=== PATIENT | female | born 1975 | race Caucasian/White ===

== ENCOUNTER → 2021-10-11 14:47 | Outpatient (CLI) | payer MEDICAID, SELFPAY ==
--- NOTE | 2021-10-11 14:47 | US_ITS ---
FINAL REPORT CLINICAL HISTORY: pelvic pain FINDINGS: Transvaginal sonographic images of the pelvis were obtained. The uterus measures 6.3 x 5.1 x 4.6 cm. The endometrium measures 6 mm, which is within normal limits. No uterine mass is identified. The right ovary measures 2.3 cm cm in length and left ovary measures 2.2 cm cm in length. Normal blood flow seen to the ovaries. There is no evidence of free fluid. IMPRESSION: No acute abnormality identified. Reviewed, Interpreted and Dictated by Nish Mancia III, MD Transcribed by Joaquin Sy Authenticated and [facility]
== END ==
PROVIDERS: Visit Provider Obstetrics & Gynecology
DX: R10.2 Pelvic and perineal pain (principal)
CPT/HCPCS: 76830

== ENCOUNTER 2021-11-06 05:29 | Emergency (ER) | payer MEDICAID, SELFPAY ==
[2021-11-06 05:30] VITALS: BP 148/88; PULSE 80; RESP 16; TEMP 36.6; O2SAT 99; BMI 31.9
[2021-11-06 05:40] VITALS: BMI 31.9
--- NOTE | 2021-11-06 05:41 | CT_ITS ---
PROCEDURE INFORMATION: Exam: CT Abdomen And Pelvis With Contrast Exam date and time: 11/06/2021 6:29 AM Age: 46 years old Clinical indication: Abdominal pain; Prior surgery; Surgery date: 6+ months; Surgery type: Tubal; Patient HX: Rlq pain w n/v/d x hours; Additional info: Abd pain TECHNIQUE: Imaging protocol: Computed tomography of the abdomen and pelvis with contrast. Radiation optimization: All CT scans at this facility use at least one of these dose optimization techniques: automated exposure control; mA and/or kV adjustment per patient size (includes targeted exams where dose is matched to clinical indication); or iterative reconstruction. Contrast material: ISOVUE; Contrast volume: 75 ml; Contrast route: IV; COMPARISON: US TRANSVAGINAL 10/11/2021 3:28 PM FINDINGS: Lungs: Minimal dependent changes are present in the lung bases. Liver: Normal. No mass. Gallbladder and bile ducts: Normal. No calcified stones. No ductal dilation. Pancreas: Normal. No ductal dilation. Spleen: Normal. No splenomegaly. Adrenal glands: Normal. No mass. Kidneys and ureters: [id number] right perinephric stranding and hydronephrosis secondary to a 4 x 3 mm calculus located at the right ureterovesical junction. Stomach and bowel: Unremarkable. No obstruction. No mucosal thickening. Appendix: The appendix is seen and is normal in appearance. Intraperitoneal space: Unremarkable. No free air. No significant fluid collection. Vasculature: Unremarkable. No abdominal aortic aneurysm. Lymph nodes: Unremarkable. No enlarged lymph nodes. Urinary bladder: Unremarkable as visualized. Reproductive: Tubal ligation clips are present. Bones/joints: Mild degenerative changes at the lumbosacral junction. Soft tissues: Unremarkable. IMPRESSION: 1. [id number] right perinephric stranding and hydronephrosis secondary to a 4 x 3 mm calculus located at the right ureterovesical junction. 2. Remainder of findings as described.
[2021-11-06 06:10] LABS: Basophils # 0.2 K/mm3 (0-0.2); Basophils % 3.2 % (0.1-2.0); Eosinophils # 0.3 K/mm3 (0.0-0.4); Eosinophils % 4.1 % (0.1-12.0); Hematocrit 41.2 % (37.0-47.0); Hemoglobin 13.2 g/dL (12.2-16.2); Lymphocytes # 1.4 K/mm3 (0.7-4.5); Lymphocytes % 18.8 % (10-50); Mean Corpuscular Hemoglobin 29.8 pg (27.0-31.2); Mean Corpuscular Volume 93.2 fl (81-99); Mean Platelet Volume 7.8 fl (7.4-10.4); Monocytes # 0.5 K/mm3 (0.1-1.0); Monocytes % 6.5 % (1.7-9.3); Neutrophils # 5.1 K/mm3 (1.8-7.8); Neutrophils % 67.4 % (37.0-80.0); Platelet Count 337 K/mm3 (142-424); Red Blood Count 4.42 M/mm3 (4.20-5.40); Red Cell Distribution Width 14.2 % (11.5-17.5); White Blood Count 7.6 K/mm3 (4.8-10.8)
[2021-11-06 06:18] LABS: HCG Qualitative, Serum Negative (Negative)
[2021-11-06 06:19] LABS: Alanine Aminotransferase 54 U/L (12-78); Albumin Level 4.2 g/dl (3.5-5.0); Albumin/Globulin Ratio 1.3 (1.1-1.8); Alkaline Phosphatase 126 U/L (38-126); Amylase 74 U/L (30-110); Anion Gap 11.2 mEq/L (5-15); Aspartate Amino Transferase 36 U/L (14-36); Blood Urea Nitrogen 11 mg/dl (7-17); Carbon Dioxide 25 mmol/L (22.0-30.0); Chloride 107 mmol/L (98-107); Creatinine Clearance Estimated 135 mL/min (50-200); Estimated Glomerular Filt Rate 78 ml/min (>60); GFR (African American) 94 ML/MIN (>60); Globulin 3.2 g/dL (1.3-3.2); Glucose 102 mg/dl (74-100); Lactic Acid 1.2 mmol/L (0.7-2.1); Lipase 114 U/L (23-300); Potassium 4.2 mmoL/L (3.5-5.1); Sodium 139 mmol/L (136-145); Total Protein,Serum 7.4 g/dl (6.3-8.2)
[2021-11-06 06:25] LABS: Bilirubin,Total < 0.1 mg/dl (0.2-1.3)
[2021-11-06 06:33] LABS: Erythrocyte Sedimentation Rate 26 mm/hr (0-20)
[2021-11-06 06:37] LABS: Procalcitonin 0.049 ng/mL (0.0-2.0)
--- NOTE | 2021-11-06 06:40 | HMH.EDNVD ---
ED Disposition Clinical Impression: Renal colic on right side Disposition: Home, Self-Care Condition on Discharge: Good Instructions: DI for Kidney Stones Additional Instructions: fluids and call pcp for follow up Prescriptions: Tamsulosin HCl [Flomax 0.4mg capsule] 0.4 mg PO HS #10 cap Transmission Status: Pending to [id number] Ketorolac Tromethamine [Toradol 10mg tablet] 10 mg PO Q6HP PRN #10 tab MDD 40mg/day PRN Reason: Moderate To Severe Pain Transmission Status: Pending to [id number] Referrals: Provider,Referral, [Primary Care Provider] - - Critical Care Critical Care Time: No Attestation: On 11/06/21, the high probability of a clinically significant, sudden or life threatening deterioration of the following system(s) required my full and direct attention, intervention and personal management. The time I documented below is in addition to time spent performing reported procedures but includes the following listed in this critical care notation. Medical Decision Making - Medical Records Medical records reviewed: Yes: I reviewed the patient's medical records. - Humberto Inquiry Pt receiving controlled substance: No Vital Signs: 11/06/21 05:30 11/06/21 07:00 Temperature 97.9 F Temperature Source Oral Pulse Rate 78 Pulse Rate [Right] 80 Respiratory Rate 16 16 Blood Pressure 149/88 H Blood Pressure [Right Arm] 148/88 H Blood Pressure Mean 108 Blood Pressure Mean [Right Arm] 108 02 Sat by Pulse Oximetry 99 99 - Lab Data Lab results reviewed: Yes: I reviewed the patient's lab results. Lab Results 11/06/21 05:58: WBC 7.6, RBC 4.42, Hgb 13.2, Hct 41.2, MCV 93.2, MCH 29.8, MCHC 32.0, RDW 14.2, Plt Count 337, MPV 7.8, Neut % (Auto) 67.4, Lymph % (Auto) 18.8, Scurry % (Auto) 6.5, Eos % (Auto) 4.1, Baso % (Auto) 3.2 H, Neut # (Auto) 5.1, Lymph # (Auto) 1.4, Scurry # (Auto) 0.5, Eos # (Auto) 0.3, Baso # (Auto) 0.2, ESR 26 H 11/06/21 05:58: Sodium 139, Potassium 4.2, Chloride 107, Carbon Dioxide 25, Anion Gap 11.2, BUN 11, Creatinine 0.80, Estimated Creat Clear 135, Estimated GFR 78, Est GFR ( Amer) 94, Glucose 102 H, Calcium 10.0, Total Bilirubin < 0.1 L, AST 36, ALT 54, Alkaline Phosphatase 126, C-Reactive Protein 7.0 H, Total Protein 7.4, Albumin 4.2, Globulin 3.2, Albumin/Globulin Ratio 1.3, Amylase 74, Lipase 114, Procalcitonin 0.049 11/06/21 05:58: Lactate 1.2 11/06/21 05:58: Serum HCG, Qual Negative Result diagrams: 11/06/21 05:58 11/06/21 05:58 Orders (Tests/Meds): ED MEDICATIONS Generic Name Dose Route Start Last Admin Trade Name Freq PRN Reason Stop Dose Admin Sodium Chloride 8 ml 11/06/21 05:48 Sodium Chloride 0.9% 10ml Vial IV 12/06/21 05:47 NEEDED PRN dilute pepcid Discontinued Medications Generic Name Dose Route Start Last Admin Trade Name Freq PRN Reason Stop Dose Admin Acetaminophen/Codeine Phosphate 1 packet 11/06/21 07:48 Acetaminophen 300mg W/Codeine 30mg Take Home Pack (6) PO 11/06/21 07:49 ONCE ONE Famotidine 20 mg 11/06/21 05:48 11/06/21 06:11 Famotidine 20mg/2ml Vial IV 11/06/21 05:49 20 mg ONCE ONE Administration Sodium Chloride 1,000 mls @ 999 mls/hr 11/06/21 06:00 11/06/21 06:22 Sod Chlor 0.9% 1000ml Bag IV 11/06/21 07:00 999 mls/hr .Q1H1M EVELIN Administration Iopamidol 75 ml 11/06/21 06:50 11/06/21 06:52 Iopamidol-370 (76%);100ml Bottle IV 11/06/21 06:51 75 ml ONCE ONE Administration Ketorolac Tromethamine 30 mg 11/06/21 05:48 11/06/21 06:11 Ketorolac 30mg/Ml Vial IV 11/06/21 05:49 30 mg ONCE ONE Administration Metoclopramide HCl 10 mg 11/06/21 05:48 11/06/21 06:11 Metoclopramide Hcl 10mg/2ml Vial IVP 11/06/21 05:49 10 mg ONCE ONE Administration Ondansetron HCl 4 mg 11/06/21 05:48 11/06/21 06:11 Ondansetron 4mg/2ml Vial IV 11/06/21 05:49 4 mg ONCE ONE Administration Tamsulosin HCl 0.4 mg 11/06/21 07:48 Tamsulos
[2021-11-06 07:00] VITALS: BP 149/88; PULSE 78; RESP 16; O2SAT 99
--- NOTE | 2021-11-06 08:00 | PC.NURSE ---
pt medicated per MAR
[2021-11-06 08:14] VITALS: BP 138/81; PULSE 79; RESP 17; TEMP 36.6; O2SAT 98
== END 2021-11-06 08:17 | disposition home or self-care (01) ==
PROVIDERS: Emergency Provider Emergency Medicine
DX: N23 Unspecified renal colic (principal)
CPT/HCPCS: 74177; 80053; 82150; 83605; 83690; 84145; 84703; 85025; 85651; 86140; 87040; 87077; 87186; 96361; 96374; 96375; 96376; 99284; J2405; Q9967